=== PATIENT | male | born 1965 | race Caucasian/White ===

== ENCOUNTER 2016-09-18 11:57 | Emergency (ER) | payer MEDICARE ==
[~2016-09-18] VITALS: Ht 180.3 cm; Wt 98.0 kg
[~2016-09-18 11:57] MED LIST: ASPI-99 PO; ATOR10 PO; CENTTAB9 PO; CITA20TA4 PO; DIAZ5TAB PO; ISOS30TA3 PO; LEVA500T PO; METO25 PO; PLAV75TA PO; POTA20IN3 PO; PROT40TA PO; RANO500 PO; TAMS0.4C67 PO; ULTR50TA PO
[2016-09-18 11:59] VITALS: BP 137/85; PULSE 68; RESP 17; TEMP 97.7; O2SAT 98
--- NOTE | 2016-09-18 12:10 | PD ---
Physical Exam Time Seen by Provider: 12:08 Narrative 51yo M c/o onset of L sided chest pain w/ SOB this morning. Left arm weakness and paraesthesias. Protocol initiated by RN in triage. Patient stable. Patient seen in triage. Awaiting bed placement. Data Data Last Documented VS Vital Signs Date Time Temp Pulse Resp B/P Pulse Ox O2 Delivery O2 Flow Rate FiO2 09/18/16 11:59 97.7 68 17 137/85 98 MDM Supervised Visit with ELIJAH: Mary Ann Prater Sep 18, 2016 12:10
[2016-09-18 13:03] LABS: AUTOMATED NEUTROPHIL # 5.1 TH/MM3 (1.8-7.7); BASOPHIL # 0.1 TH/MM3 (0-0.2); BASOPHIL % 0.7 % (0.0-2.0); EOSINOPHIL # 0.3 TH/MM3 (0-0.4); EOSINOPHIL % 3.4 % (0.0-4.0); HEMATOCRIT 40.9 % (39.0-51.0); HEMO FLAGS DIFF FINAL; LYMPH % 21.3 % (9.0-44.0); LYMPHOCYTE # 1.7 TH/MM3 (1.0-4.8); MEAN CELL VOLUME 78.5 FL (80.0-100.0); MEAN CORPUSCULAR HEMOGLOBIN 26.5 PG (27.0-34.0); MEAN CORPUSCULAR HGB CONC 33.8 % (32.0-36.0); MONO % 11.8 % (0.0-8.0); NEUT % 62.8 % (16.0-70.0); PLATELET COUNT 185 TH/MM3 (150-450); RED BLOOD COUNT 5.21 MIL/MM3 (4.50-5.90); RED CELL DISTRIBUTION WIDTH 14.8 % (11.6-17.2); WHITE BLOOD COUNT 8.1 TH/MM3 (4.0-11.0)
[2016-09-18 14:37] LABS: PROTHROMBIN TIME - PATIENT 11.3 SEC (9.8-11.6)
[2016-09-18 14:40] LABS: ANION GAP 8 MEQ/L (5-15); AST (GOT) 26 U/L (15-37); BICARBONATE 31.4 MEQ/L (21.0-32.0); BLOOD UREA NITROGEN 20 MG/DL (7-18); CHLORIDE 99 MEQ/L (98-107); GLOMERULAR FILTRATION RATE 54 ML/MIN (>89); SODIUM (NA) 138 MEQ/L (136-145)
[2016-09-18 14:41] LABS: POTASSIUM 4.4 MEQ/L (3.5-5.1)
[2016-09-18 14:45] LABS: ALKALINE PHOSPHATASE 91 U/L (45-117); ALT (GPT) 29 U/L (12-78); TOTAL BILIRUBIN ADULT 0.6 MG/DL (0.2-1.0)
--- NOTE | 2016-09-19 13:02 | EKG ---
Date Performed: 09/18/2016 Time Performed: 12:19:04 PTAGE: 51 years EKG: Sinus rhythm NONSPECIFIC INTRAVENTRICULAR CONDUCTION DELAY BORDERLINE ECG PREVIOUS TRACING : 06/08/2014 13.30 Compared to previous tracing, T wave inversion in V2 and V3 has resolved, T wave inversion in V1 has improved. DOCTOR: Alfredito Reyes Interpretating Date/Time 09/19/2016 13:00:22
== END 2016-09-18 15:18 | disposition left against medical advice (07) ==
LOC: NED 11:57
DX: R07.89 Other chest pain (principal); R06.02 Shortness of breath; R20.2 Paresthesia of skin; R94.31 Abnormal electrocardiogram [ECG] [EKG]
CPT/HCPCS: 80053; 84484; 85025; 85610; 85730; 93005